=== PATIENT | male | born 1980 | race Native Hawaiian/Other Pacific Islander ===

== ENCOUNTER 2016-08-31 10:16 | Emergency (ER) | payer OTHER ==
[~2016-08-31] VITALS: Ht 170.2 cm; Wt 81.6 kg
[2016-08-31 10:19] VITALS: TEMP 98.9
[2016-08-31 11:01] VITALS: BP 126/72
== END 2016-08-31 11:03 | disposition home or self-care (01) ==
LOC: ED 10:16
DX: R68.84 Jaw pain (principal); K02.9 Dental caries, unspecified; K04.7 Periapical abscess without sinus; K05.30 Chronic periodontitis, unspecified
CPT/HCPCS: 96372; 99283; J0696; J1885

== ENCOUNTER 2016-12-28 09:21 | Emergency (ER) | payer OTHER ==
[~2016-12-28] VITALS: Ht 170.2 cm; Wt 81.6 kg
[2016-12-28 09:31] VITALS: TEMP 98
[2016-12-28 09:51] VITALS: BP 122/74
== END 2016-12-28 09:55 | disposition home or self-care (01) ==
LOC: ED 09:21
DX: L03.115 Cellulitis of right lower limb (principal); T63.301A Toxic effect of unspecified spider venom, accidental (unintentional), initial encounter; Y92.098 Other place in other non-institutional residence as the place of occurrence of the external cause
CPT/HCPCS: 96372; 99282; J0696

== ENCOUNTER 2020-01-21 01:55 | Emergency (ER) | payer OTHER ==
[~2020-01-21] VITALS: Ht 170.2 cm; Wt 83.5 kg
[2020-01-21 02:47] LABS: PLATELET COUNT 273 K/uL (142-355)
[2020-01-21 02:49] LABS: POTASSIUM 3.3 mmol/L (3.6-5.2)
[2020-01-21 03:20] VITALS: BP 116/63; TEMP 97.6
== END 2020-01-21 03:20 | disposition home or self-care (01) ==
LOC: ED 01:55
PROVIDERS: Emergency Medicine Emergency Medical Services
DX: F10.129 Alcohol abuse with intoxication, unspecified (principal); Y90.7 Blood alcohol level of 200-239 mg/100 ml; R11.2 Nausea with vomiting, unspecified
CPT/HCPCS: 80053; 80307; 80320; 81000; 85027; 96360; 96375; 99284; J2405

== ENCOUNTER 2020-05-01 12:34 | Emergency (ER) | payer OTHER ==
[~2020-05-01] VITALS: Ht 170.2 cm; Wt 83.5 kg
[2020-05-01 12:44] VITALS: BP 162/91; TEMP 97.7
== END 2020-05-01 13:57 | disposition home or self-care (01) ==
LOC: ED 12:34
DX: S83.8X2A Sprain of other specified parts of left knee, initial encounter (principal); W11.XXXA Fall on and from ladder, initial encounter; Y92.098 Other place in other non-institutional residence as the place of occurrence of the external cause
CPT/HCPCS: 99283

== ENCOUNTER 2021-01-15 02:24 | Emergency (ER) | payer OTHER ==
[~2021-01-15] VITALS: Ht 170.2 cm; Wt 83.5 kg
[2021-01-15 03:16] LABS: PLATELET COUNT 267 K/uL (142-355)
[2021-01-15 03:22] LABS: POTASSIUM 3.4 mmol/L (3.6-5.2); SODIUM 142 mmol/L (136-145)
[2021-01-17 09:00] VITALS: BP 138/80; TEMP 98
== END 2021-01-17 14:30 | disposition home or self-care (01) ==
LOC: ED 02:24
PROVIDERS: Emergency Medicine Emergency Medical Services
DX: F32.89 Other specified depressive episodes (principal); T39.312A Poisoning by propionic acid derivatives, intentional self-harm, initial encounter; T43.622A Poisoning by amphetamines, intentional self-harm, initial encounter; T42.4X2A Poisoning by benzodiazepines, intentional self-harm, initial encounter; T40.2X2A Poisoning by other opioids, intentional self-harm, initial encounter; Y92.89 Other specified places as the place of occurrence of the external cause; Z11.52 Encounter for screening for COVID-19
CPT/HCPCS: 36415; 36600; 80048; 80053; 80307; 80320; 80329; 81000; 82805; 83605; 84484; 85027; 85610; 87635; 93005; 96365; 96376; 99285; J2405; U0003

== ENCOUNTER 2021-02-18 10:49 | Emergency (ER) | payer OTHER ==
[~2021-02-18] VITALS: Ht 170.2 cm; Wt 81.6 kg
[2021-02-18 11:45] LABS: PLATELET COUNT 232 K/uL (142-355)
[2021-02-18 12:00] LABS: POTASSIUM 3.5 mmol/L (3.6-5.2)
[2021-02-18 13:20] VITALS: BP 148/89; TEMP 99
== END 2021-02-18 13:20 | disposition home or self-care (01) ==
LOC: ED 10:49
PROVIDERS: Emergency Medicine Emergency Medical Services
DX: L03.116 Cellulitis of left lower limb (principal)
CPT/HCPCS: 36415; 80053; 83605; 85027; 87040; 96360; 96375; 99284; J1885; J2405

== ENCOUNTER 2021-05-19 14:14 | Emergency (ER) | payer OTHER ==
[~2021-05-19] VITALS: Ht 170.2 cm; Wt 81.6 kg
[2021-05-19 14:24] VITALS: TEMP 98.9
[2021-05-19 15:46] VITALS: BP 133/86
== END 2021-05-19 15:48 | disposition home or self-care (01) ==
LOC: ED 14:14
DX: J01.80 Other acute sinusitis (principal); J02.9 Acute pharyngitis, unspecified; Z20.822 Contact with and (suspected) exposure to COVID-19; F17.210 Nicotine dependence, cigarettes, uncomplicated
CPT/HCPCS: 87502; 87635; 87651; 99282; 99283; U0003

== ENCOUNTER 2021-08-06 15:35 | Emergency (ER) | payer OTHER ==
[~2021-08-06] VITALS: Ht 170.2 cm; Wt 81.6 kg
[2021-08-06 15:40] VITALS: TEMP 98.5
[2021-08-06 16:20] VITALS: BP 152/82
== END 2021-08-06 16:26 | disposition home or self-care (01) ==
LOC: ED 15:35
DX: H65.01 Acute serous otitis media, right ear (principal); J32.8 Other chronic sinusitis; F17.220 Nicotine dependence, chewing tobacco, uncomplicated
CPT/HCPCS: 93005; 99283

== ENCOUNTER 2021-11-13 16:45 | Emergency (ER) | payer BC ==
[~2021-11-13] VITALS: Ht 170.2 cm; Wt 81.6 kg
[2021-11-13 17:32] LABS: PLATELET COUNT 276 K/uL (142-355)
[2021-11-13 17:39] LABS: POTASSIUM 3.3 mmol/L (3.6-5.2)
[2021-11-13 21:20] VITALS: BP 119/69; TEMP 98
== END 2021-11-13 21:20 | disposition still patient (30) ==
LOC: ED 16:45
PROVIDERS: Emergency Medicine
DX: F19.10 Other psychoactive substance abuse, uncomplicated (principal); F10.129 Alcohol abuse with intoxication, unspecified; Y90.3 Blood alcohol level of 60-79 mg/100 ml; E87.6 Hypokalemia; Z11.52 Encounter for screening for COVID-19
CPT/HCPCS: 80053; 80143; 80179; 80307; 80320; 81002; 85027; 87635; 93005; 99285; U0003